=== PATIENT | female | born 1925 | race Caucasian/White ===

== ENCOUNTER 2017-02-15 09:11 | Inpatient (IN) | payer MEDICARE, BC ==
[~2017-02-15] VITALS: Ht 165.1 cm; Wt 71.6 kg
[~2017-02-15 09:11] MED LIST: ATOR20TA38 PO; CEPH-443 PO; CLOP75TA4 PO; VALS320T11 PO
[2017-02-15 09:32] VITALS: TEMP 98.3
[2017-02-15] MEDS ORDERED: FUROSEMIDE 40 MG INJ IV STA (09:39)
[2017-02-15 10:26] LABS: ABNORMAL IP MESSAGE 1; BASOPHIL # 0.1 10^3/ul (0.0-0.1); BASOPHILS % 0.8 % (0.0-2.0); EOSINOPHILS # 0.1 10^3/ul (0.0-0.5); EOSINOPHILS % 0.8 % (0.0-7.0); HEMATOCRIT 42.6 % (37.0-47.0); HEMOGLOBIN 13.9 g/dl (12.0-16.0); LYMPHOCYTES # 1.3 10^3/ul (0.8-2.9); LYMPHOCYTES % 14.1 % (15.0-51.0); MEAN CORPUSCULAR HEMOGLOBIN 30.9 pg (29.0-33.0); MEAN CORPUSCULAR HGB CONC 32.6 g/dl (32.0-37.0); MEAN CORPUSCULAR VOLUME 94.7 fl (82.0-101.0); MEAN PLATELET VOLUME 13.1 fl (7.4-10.4); MONOCYTE # 0.7 10^3/ul (0.3-0.9); MONOCYTES % 7.5 % (0.0-11.0); NEUTROPHILS % 76.4 % (39.0-77.0); PLATELET COUNT 184 10^3/UL (140-415); RED CELL DISTRIBUTION WIDTH 15.1 % (11.5-14.5); WHITE BLOOD COUNT 8.9 10^3/ul (4.8-10.8)
[2017-02-15 10:30] LABS: POSITIVE DIFF @See below
[2017-02-15 10:42] LABS: CALCIUM 8.6 mg/dl (8.4-10.2); CREATININE 1.09 mg/dl (0.44-1.00); POTASSIUM 4.1 mmol/L (3.5-5.1)
[2017-02-15 10:45] LABS: INR 0.87; PROTIME 11.8 Sec (12.2-14.2); PT RATIO 0.9
[2017-02-15 10:46] LABS: PARTIAL THROMBOPLASTIN TIME 26.9 Sec (25.0-35.0)
--- NOTE | 2017-02-15 10:50 | RADRPT ---
PROCEDURE: XR Chest. CLINICAL INDICATION: Chest pain TECHNIQUE: AP view of the chest was performed. COMPARISON: 01/10/2015 FINDINGS: The right lung field is clear. There is a small basilar left pleural effusion with associated airsp imani disease. The lung volumes are normal. The heart size is normal. The osseous structures are in tact. Aortic atherosclerosis is present. IMPRESSION: Small left basilar consolidation with associated small pleural effusion. Aortic atherosclerosis RPTAT: QQ .Liane Goodson MD, Date Time Electronically viewed and signed by .Liane Goodson MD, on 02/15/2017 10:49 .M/
[2017-02-15 11:00] LABS: TROPONIN-I 0.386 ng/ml (0.00-0.12)
[2017-02-15] MEDS ORDERED: NITROGLYCERIN 2% 1 GM OINT PKT TD STA (11:10)
[2017-02-15] MEDS ORDERED: ASPIRIN 81 MG TAB PO STA (11:10)
[2017-02-15] MEDS ORDERED: NITROGLYCERIN (SL) 0.4 MG TAB SL PRN (11:30)
[2017-02-15] MEDS ORDERED: ONDANSETRON 4 MG INJ IV PRN ×2 (12:00→17:00)
[2017-02-15] MEDS ORDERED: ACETAMINOPHEN 325 MG TAB PO PRN ×2 (12:00→17:00)
--- NOTE | 2017-02-15 13:31 | ERA ---
ER Documentation Chief Complaint Date/Time DATE: 02/15/17 TIME: 13:28 Chief Complaint swelling on bilat lower ext, mild sob, onset 2 days HPI Patient is an 89-year-old female with emphysema and hypertension who presents with lower extremity swelling. She has bilateral lower extreme knee swelling which she describes as "dripping water". She said that the right leg is worse than the left but there is swelling in both. The patient said that the symptoms started last week but over the past 2 days the stripping has been worse. She denies chest pain or shortness of breath. Upon review of old medical records the patient one previous visit to the ER in 2014. She does not currently have a primary doctor. ROS All systems reviewed and are negative except as per history of present illness. Medications Home Meds Active Scripts Cephalexin* (Keflex*) 500 Mg Capsule, 500 MG PO BID for 7 Days, CAP Prov:RIC CARL MD 01/10/15 Reported Medications Valsartan* (Diovan*) 320 Mg Tablet, 320 MG PO DAILY, TAB 01/10/15 Atorvastatin Calcium* (Atorvastatin Calcium*) 20 Mg Tablet, 20 MG PO HS, TAB 01/10/15 Clopidogrel Bisulfate* (Clopidogrel Bisulfate*) 75 Mg Tablet, 75 MG PO DAILY, TAB 01/10/15 Allergies Allergies: Coded Allergies: No Known Allergy (Unverified , 01/10/15) PMhx/Soc History of Surgery: No Anesthesia Reaction: No Hx Neurological Disorder: Yes (Forgetful) Hx Respiratory Disorders: No Hx Cardiac Disorders: Yes (HTN) Hx Psychiatric Problems: No Hx Miscellaneous Medical Probl: No Hx Alcohol Use: No Hx Substance Use: No Hx Tobacco Use: No Smoking Status: Never smoker FmHx Family History: No diabetes Physical Exam Vitals Vital Signs Date Time Temp Pulse Resp B/P Pulse Ox O2 Delivery O2 Flow Rate FiO2 02/15/17 11:32 84 20 130/74 95 Room Air 02/15/17 09:32 98.3 84 20 154/78 96 Room Air 02/15/17 09:32 0 02/15/17 09:14 98.9 101 19 140/68 95 Physical Exam Const: No acute distress Head: Atraumatic Eyes: Normal Conjunctiva ENT: Normal External Ears, Nose and Mouth. Neck: Full range of motion..~ No meningismus. Resp: Clear to auscultation bilaterally Cardio: Regular rate and rhythm, no murmurs Abd: Soft, non tender, non distended. Normal bowel sounds Skin: Pitting edema to lower extremities bilaterally Back: No midline or flank tenderness Ext: 2+ pitting edema bilateral lower extremities Neur: Awake and alert Psych: Normal Mood and Affect Result Diagram: 02/15/1730 02/15/17 0930 Results 24 hrs Laboratory Tests Test 02/15/17 09:30 White Blood Count 8.910^3/ul Red Blood Count 4.5010^6/ul Hemoglobin 13.9g/dl Hematocrit 42.6% Mean Corpuscular Volume 94.7fl Mean Corpuscular Hemoglobin 30.9pg Mean Corpuscular Hemoglobin Concent 32.6g/dl Red Cell Distribution Width 15.1% Platelet Count 08913^3/UL Mean Platelet Volume 13.1fl Neutrophils % 76.4% Lymphocytes % 14.1% Monocytes % 7.5% Eosinophils % 0.8% Basophils % 0.8% Nucleated Red Blood Cells % 0.0/100WBC Neutrophils # (Manual) 710^3/ul Lymphocytes # 1.310^3/ul Monocytes # 0.710^3/ul Eosinophils # 0.110^3/ul Basophils # 0.110^3/ul Nucleated Red Blood Cells # 0.010^3/ul Prothrombin Time 11.8Sec Prothrombin Time Ratio 0.9 INR International Normalized Ratio 0.87 Activated Partial Thromboplast Time 26.9Sec Sodium Level 141mmol/L Potassium Level 4.1mmol/L Chloride Level 105mmol/L Carbon Dioxide Level 26mmol/L Anion Gap 14 Blood Urea Nitrogen 24mg/dl Creatinine 1.09mg/dl Glucose Level 122mg/dl Calcium Level 8.6mg/dl Troponin I 0.386ng/ml Current Medications Medications (Trade) Dose Ordered Sig/Nicholas Route PRN Reason Start Time Stop Time Status Last Admin Dose Admin Furosemide (Lasix) 40 mg ONCE STAT IV 02/15/17 09:39 02/15/17 09:42 DC 02/15/17 10:37 Aspirin (Aspirin) 162 mg ONCE STAT PO 02/15/17 11:10 02/15/17 11:11 DC 02/15/17 11:29 Nitroglycerin (Nitroglycerin 2% Oint) 1 inch ONCE STAT TD 02/15/17 11:10 02/15/17 11:11 DC 02/15/17 11:29 Nitroglycerin (Nitroglycerin (Sl Tab) 0.4 Mg) 1 tab Q5M UP TO 3 DOSES PRN SL CHEST PAIN 02/15/17 11:30 Ondansetron HCl (Zofran Inj) 4 mg ER BRIDGE PRN IV NAUSEA AND/OR VOMITING 02/15/17 12:00 02/16/17 11:59 Acetaminophen (Tylenol Tab) 650 mg ER BRIDGE PRN PO MILD PAIN/FEVER 02/15/17 12:00 02/16/17 11:59 Procedures/MDM EKG read by me: Rate/Rhythm: First-degree AV block at a rate of 81 Intervals: Normal Impression: First-degree AV block without ischemia PROCEDURE: XR Chest. CLINICAL INDICATION: Chest pain TECHNIQUE: AP view of the chest was performed. COMPARISON: 01/10/2015 FINDINGS: The right lung field is clear. There is a small basilar left pleural effusion with associated airspace disease. The lung volumes are normal. The heart size is normal. The osseous structures are intact. Aortic atherosclerosis is present. IMPRESSION: Small left basilar consolidation with associated small pleural effusion. Aortic atherosclerosis RPTAT: QQ .Liane Goodson MD, MD Date Time Electronically viewed and signed by .Liane Goodson MD, MD on 02/15/2017 10:49 Patient is an 89-year-old female who presents with bilateral lower semi- swelling. She was found to have a positive troponin I believe the patient has an NSTEMI. EKG shows no sign of ST elevation. She has likely acute congestive heart failure as well from the NSTEMI. The patient was given aspirin nitroglycerin as well as Lasix. The patient will be admitted to a telemetry bed under the care of the panel team. Dr. Tompkins from cardiology will see the patient as well. The patient has discussed with me and said that she does not want heroic life-saving measures taken if her heart stops and therefore we will allison her as a DO NOT RESUSCITATE. She does not want intubation or chest compressions. Critical Care: Time: 35 minutes excluding all billable procedures. Treatments/Evaluations: Close monitoring and treatment of unstable vital signs, cardiorespiratory, and neurologic status, while maintaining tight balance of fluid, respiratory, and cardiac interventions. Departure Diagnosis: Primary Impression: NSTEMI (non-ST elevated myocardial infarction) Condition: Serious CANELO CAMJEO MD Feb 15, 2017 13:31
[2017-02-15 15:10] VITALS: BP 123/67; PULSE 94; RESP 16
[2017-02-15 15:41] VITALS: Ht 165.1 cm; Wt 71.6 kg
--- NOTE | 2017-02-15 15:56 | RADRPT ---
Echocardiogram Report Patient Name: CASI SMITH Gender: Female Date: 1925 Study Date: 15-Feb-2017 Radiology Technologist: Cassy De Jesus RDCS Location: [facility] Ref. Physician: ROGER TOMPKINS Quality: Adequate Procedures: Transthoracic echocardiogram with complete 2D, M-Mode, and doppler examination. Indications: Congestive Heart Failure, elv trop. 2D/M Mode Doppler Measurement Value Normal Ranges Measurement Value Normal Ranges LVIDd 2D 2.6 3.5 - 5.6 cm AV Peak Aquiles 5.0 m/sec LVIDs 2D 1.7 2.1 - 4.1 cm AV Peak PG 99.0 mmHg FS 2D 36.3 % LVOT Peak Aquiles 3.6 m/sec LVPWd 2D 2.1 0.6 - 1.1 cm LVOT Peak PG 52.0 mmHg IVSd 2D 2.1 0.6 - 1.1 cm MV E Peak Aquiles 0.9 m/sec IVS/LVPW 2D 1.0 MV A Peak Aquiles 1.2 m/sec AoR Diam 2D 2.6 2.0 - 3.7 cm MV E/A 0.7 LA/Ao 2D 1 0 - 1 MV Decel Time 194 msec EDV 2D 18.0 cm3 MV E/A 0.7 ESV 2D 4.7 cm3 MR Peak PG 171.0 mmHg LA Dimen 2D 3.8 2.3 - 4.0 cm MR Peak Aquiles 6.5 m/sec TR Peak Aquiles 2.3 m/sec TR Peak PG 22.0 mmHg RVSP 25.0 mmHg Findings Left Ventricle: Normal left ventricular systolic function. Normal left ventricular cavity size. Severe concentric left ventricular hypertrophy. Ejection fraction is visually estimated at 65 %. Tissue Doppler/Mitral Doppler indices are consistent with impaired relaxation (Stage I diastolic dysfunction). Resting left ventricular outflow tract velocity 4.97 m/sec. Resting left ventricular outflow tract gradient 99.0 mmHg. Right Ventricle: Normal right ventricular size. Normal right ventricular systolic function. Left Atrium: The left atrium is normal in size. Right Atrium: The right atrium is normal in size. Mitral Valve: Mitral valve leaflets appear mildly thickened. Mild mitral annular calcification. Mild mitral valve regurgitation. The regurgitation jet is eccentrically directed which may underestimate the severity of mitral regurgitation. Systolic anterior motion of mitral valve seen. Aortic Valve: Normal appearance of the aortic valve. No significant aortic stenosis or insufficiency. Tricuspid Valve: Normal appearance of the tricuspid valve. Estimated peak PA systolic pressure 25 mmHg. There is trace tricuspid regurgitation. Pulmonic Valve: Pulmonic valve not well visualized. Pericardium: Normal pericardium with no significant pericardial effusion. Aorta: Normal aortic root. IVC: Normal size and normal respiratory collapse consistent with normal right atrial pressure. Conclusions Normal left ventricular systolic function. Normal left ventricular cavity size. Severe concentric left ventricular hypertrophy. Ejection fraction is visually estimated at 65 %. Tissue Doppler/Mitral Doppler indices are consistent with impaired relaxation (Stage I diastolic dysfunction). Left ventricular outflow tract gradient. Normal right ventricular size. Normal right ventricular systolic function. The left atrium is normal in size. The right atrium is normal in size. Mild mitral valve regurgitation. The regurgitation jet is eccentrically directed which may underestimate the severity of mitral regurgitation. Systolic anterior motion of mitral valve seen. No significant aortic stenosis or insufficiency. Normal pericardium with no significant pericardial effusion. Electronically Signed By: Roger Tompkins 15-Feb-2017 15:56:27 -0700 Patient Name: CASI SMITH Study Date: 15-Feb-2017 [id number]
--- NOTE | 2017-02-15 16:08 | CONS ---
Date/Time of Note Date/Time of Note DATE: 02/15/17 TIME: 16:01 Assessment/Plan Assessment/Plan Additional Assessment/Plan Acute decompensated diastolic congestive heart failure Severe left ventricular hypertrophy with evidence of hypertrophic obstructive cardiomyopathy Mitral regurgitation Mildly elevated troponin Hypertension DNR/I -Patient initially presented with symptoms of worsening lower extremity edema and weeping. She denies any chest pain but has been having on and off shortness of breath for 6 months. Her chest x-ray with minimal congestion but she does have evidence of significant edema. Given evidence of HOCM on echo, would be gentle with diuretics, would start beta-zhou. Will check serial cardiac enzymes, continue antiplatelet therapy, start statin therapy. Lower extremity venous Dopplers. Consultation Date/Type/Reason Admit Date/Time Feb 15, 2017 at 11:51 Type of Consultation: cv Reason for Consultation Elevated troponin Hx of Present Illness This is an 89-year-old female with past medical history of hypertension, emphysema as per the patient, presents with increased lower extremity edema and discomfort over the past few weeks. Patient states she is always had lower extremity edema but not to this extent. Over the past week, she started weeping from her lower extremities. This worsened today and for that reason she came to the emergency room for further evaluation and care. She has been having intermittent symptoms of shortness of breath off and on over the past 6 months. She tells me she was diagnosed with emphysema by a physician of unknown name approximately 6 months ago he was not a chief lifestyle officer. She denies any chest pain. Her activity is very limited because of her lower extremity edema. She denies any abdominal pain, nausea, fevers or chills. She has not seen a physician in a number of months and usually has not followed up. 12 point review of systems was performed with all pertinent positives and negatives mentioned above and all else is negative Past Medical History Medical History: hypertension Family History Significant Family History: no pertinent family hx Social History Smoking Status: Former smoker Exam/Review of Systems Vital Signs Vitals Vital Signs Date Time Temp Pulse Resp B/P Pulse Ox O2 Delivery O2 Flow Rate FiO2 02/15/17 15:10 97.8 94 16 123/67 97 Room Air 02/15/17 09:32 0 Exam Constitutional: alert, oriented, well developed Neck: supple Respiratory: other (Coarse breath sounds bilaterally, no wheezing) Cardiovascular: other (S1-S2 heard), regular rate and rhythm, systolic murmur Gastrointestinal: bowel sounds, non-tender, soft Extremities: edema Results Result Diagram: 02/15/17 0930 02/15/17 0930 Results 24 hrs Laboratory Tests Test 02/15/17 09:30 White Blood Count 8.9 Red Blood Count 4.50 Hemoglobin 13.9 Hematocrit 42.6 Mean Corpuscular Volume 94.7 Mean Corpuscular Hemoglobin 30.9 Mean Corpuscular Hemoglobin Concent 32.6 Red Cell Distribution Width 15.1 H Platelet Count 184 Mean Platelet Volume 13.1 H Neutrophils % 76.4 Lymphocytes % 14.1 L Monocytes % 7.5 Eosinophils % 0.8 Basophils % 0.8 Nucleated Red Blood Cells % 0.0 Neutrophils # (Manual) 7 Lymphocytes # 1.3 Monocytes # 0.7 Eosinophils # 0.1 Basophils # 0.1 Nucleated Red Blood Cells # 0.0 Prothrombin Time 11.8 L Prothrombin Time Ratio 0.9 INR International Normalized Ratio 0.87 Activated Partial Thromboplast Time 26.9 Sodium Level 141 Potassium Level 4.1 Chloride Level 105 Carbon Dioxide Level 26 Anion Gap 14 Blood Urea Nitrogen 24 H Creatinine 1.09 H Glucose Level 122 Calcium Level 8.6 Troponin I 0.386 *H Medications Medications Current Medications Metoprolol Tartrate (Lopressor) 25 mg BID PO ; Start 02/15/17 at 21:00; Status UNV Aspirin (Aspirin) 81 mg DAILY PO ; Start 02/16/17 at 09:00; Status UNV Atorvastatin Calcium (Lipitor) 40 mg HS PO ; Start 02/15/17 at 21:00; Status UNV Procedures Procedures ECG demonstrates sinus rhythm at 81 bpm, QRS 92 ms, incomplete right bundle branch, nonspecific T-wave abnormalities Roger Tompkins DO Feb 15, 2017 16:08
[2017-02-15 16:38] VITALS: PULSE 91
--- NOTE | 2017-02-15 16:57 | RADRPT ---
PROCEDURE: US Lower extremity venous, bilateral CLINICAL INDICATION: Edema TECHNIQUE: Multiple sonographic images of the bilateral lower extremity deep venous system was ob tained utilizing grayscale, color-flow, compressive sonography and doppler imaging with augmentation . The images were reviewed on a PACS workstation. COMPARISON: None. FINDINGS: There is normal compressibility and flow within the bilateral common femoral, superficial femoral , posterior tibial, peroneal and popliteal veins. Within the subcutaneous soft tissues of the left popliteal fossa, there is a 2.3 x 1.2 x 1.5 cm mild ly complex fluid collection. RPTAT: AA IMPRESSION: No sonographic evidence for deep venous thrombosis in bilateral lower extremities. 2.3 cm Vega's cyst in the left popliteal fossa. Physician Eron Date Time Electronically viewed and signed by Benji Candelario Physician on 02/15/2017 16:57 /
[2017-02-15] MEDS ORDERED: morphine 2 MG INJ IV PRN (17:00)
[2017-02-15] MEDS ORDERED: NACL 0.9% 3 ML SYG IV SCH (17:00)
[2017-02-15] MEDS ORDERED: DOCUSATE SODIUM 100 MG CAP PO PRN (17:00)
[2017-02-15] MEDS ORDERED: HYDROCODONE/APAP (5/325) TAB PO PRN (17:00)
[2017-02-15] MEDS: FUROSEMIDE 20 MG INJ IV SCH (17:30)
[2017-02-15] MEDS ORDERED: MAGNESIUM SULFATE 2 GM/50 ML 50 ML IVPB STA (17:37)
[2017-02-15 18:21] LABS: CK-MB 12.7 ng/ml (0.0-2.4)
[2017-02-15 18:22] LABS: TROPONIN-I 0.475 ng/ml (0.00-0.12)
[2017-02-15] MEDS ORDERED: MAGNESIUM SULFATE 2 GM/50 ML 50 ML IVPB ONE (18:30)
[2017-02-15 20:13] VITALS: BP 89/53; RESP 18
[2017-02-15 20:15] VITALS: PULSE 89
[2017-02-15] MEDS: ATORVASTATIN 40 MG TAB PO SCH (20:55)
[2017-02-15] MEDS: METOPROLOL 25 MG TAB PO SCH (20:55)
[2017-02-15 20:57] VITALS: BP 115/56; PULSE 95; RESP 18
[2017-02-15 23:32] LABS: CK-MB 12.2 ng/ml (0.0-2.4); TROPONIN-I 0.511 ng/ml (0.00-0.12)
[2017-02-16] VITALS (14 sets, daily range): BP systolic 108–130; BP diastolic 56–70; PULSE 74–103; RESP 20
[2017-02-16] MEDS: FUROSEMIDE 20 MG INJ IV SCH ×2 (05:46→17:43)
--- NOTE | 2017-02-16 07:21 | PN ---
Date/Time of Note Date/Time of Note DATE: 02/16/17 TIME: 07:18 Assessment/Plan VTE Prophylaxis VTE Prophylaxis Intervention: SCD's Lines/Catheters IV [facility] Saline Lock Urinary Cath still in place: No Assessment/Plan Assessment/Plan Acute decompensated diastolic congestive heart failure s/p Torsades Severe left ventricular hypertrophy with evidence of hypertrophic obstructive cardiomyopathy Mitral regurgitation Mildly elevated troponin Hypertension s/p Torsades 02/16 for 5 minutes DNR/I -Patient initially presented with symptoms of worsening lower extremity edema and weeping. She denies any chest pain but has been having on and off shortness of breath for 6 months. Her chest x-ray with minimal congestion but she does have evidence of significant edema. Given evidence of HOCM on echo, would be gentle with diuretics, would continuebeta-zhou. Will check serial cardiac enzymes, continue antiplatelet therapy, start statin therapy. She is s/ p torsades and no recurrecne post magnesium. She is a DNR patient and possible EP input Subjective 24 Hr Interval Summary Free Text/Dictation The patient s/p torsades and no recurrence since Exam/Review of Systems Vital Signs Vitals Vital Signs Date Time Temp Pulse Resp B/P Pulse Ox O2 Delivery O2 Flow Rate FiO2 02/16/17 05:25 97.9 87 20 108/56 90 02/15/17 20:57 Room Air 02/15/17 09:32 0 Intake and Output 02/15/17 02/15/17 02/16/17 15:00 23:00 07:00 Intake Total 625 ml 300 ml Output Total 1 ml Balance 624 ml 300 ml Results Result Diagram: 02/15/1730 02/15/17 0930 Results 24 hrs Laboratory Tests Test 02/15/17 09:30 02/15/17 17:25 02/15/17 17:37 02/15/17 22:24 White Blood Count 8.9 Red Blood Count 4.50 Hemoglobin 13.9 Hematocrit 42.6 Mean Corpuscular Volume 94.7 Mean Corpuscular Hemoglobin 30.9 Mean Corpuscular Hemoglobin Concent 32.6 Red Cell Distribution Width 15.1 H Platelet Count 184 Mean Platelet Volume 13.1 H Neutrophils % 76.4 Lymphocytes % 14.1 L Monocytes % 7.5 Eosinophils % 0.8 Basophils % 0.8 Nucleated Red Blood Cells % 0.0 Neutrophils # (Manual) 7 Lymphocytes # 1.3 Monocytes # 0.7 Eosinophils # 0.1 Basophils # 0.1 Nucleated Red Blood Cells # 0.0 Prothrombin Time 11.8 L Prothrombin Time Ratio 0.9 INR International Normalized Ratio 0.87 Activated Partial Thromboplast Time 26.9 Sodium Level 141 Potassium Level 4.1 Chloride Level 105 Carbon Dioxide Level 26 Anion Gap 14 Blood Urea Nitrogen 24 H Creatinine 1.09 H Glucose Level 122 Calcium Level 8.6 Troponin I 0.386 *H 0.475 *H 0.511 *H Creatine Kinase 195 192 Creatine Kinase Index 6.5 6.4 Creatinine Kinase MB (Mass) 12.70 H 12.20 H Magnesium Level 1.8 Medications Medications Current Medications Metoprolol Tartrate (Lopressor) 25 mg BID PO Last administered on 02/15/17 20: 55; Admin Dose 25 MG; Start 02/15/17 at 21:00 Aspirin (Aspirin) 81 mg DAILY PO ; Start 02/16/17 at 09:00 Atorvastatin Calcium (Lipitor) 40 mg HS PO Last administered on 02/15/17 20:55 ; Admin Dose 40 MG; Start 02/15/17 at 21:00 Clopidogrel Bisulfate (plaVIX) 75 mg DAILY PO ; Start 02/16/17 at 09:00 Ondansetron HCl (Zofran Inj) 4 mg Q6H PRN IV NAUSEA AND/OR VOMITING; Start at 17:00 Acetaminophen (Tylenol Tab) 650 mg Q6H PRN PO PAIN LEVEL 1-3 OR FEVER; Start at 17:00 Acetaminophen/ Hydrocodone Bitart ([place] (5/325)) 1 tab Q6H PRN PO MODERATE PAIN LEVEL 4-6; Start 02/15/17 at 17:00 Morphine Sulfate (morphine) 2 mg Q4H PRN IV SEVERE PAIN LEVEL 7-10; Start 02/15 at 17:00 Docusate Sodium (Colace) 100 mg Q12H PRN PO CONSTIPATION; Start 02/15/17 at 17: 00 Enoxaparin Sodium (Lovenox) 40 mg DAILY SC ; Start 02/16/17 at 09:00 TRACY ROUSE MD Feb 16, 2017 07:21
[2017-02-16 08:55] LABS: ABNORMAL IP MESSAGE 1; BASOPHIL # 0.1 10^3/ul (0.0-0.1); BASOPHILS % 0.5 % (0.0-2.0); EOSINOPHILS # 0.1 10^3/ul (0.0-0.5); EOSINOPHILS % 0.8 % (0.0-7.0); HEMATOCRIT 42.3 % (37.0-47.0); HEMOGLOBIN 14.1 g/dl (12.0-16.0); LYMPHOCYTES # 1.5 10^3/ul (0.8-2.9); LYMPHOCYTES % 16.6 % (15.0-51.0); MEAN CORPUSCULAR HEMOGLOBIN 31.7 pg (29.0-33.0); MEAN CORPUSCULAR HGB CONC 33.3 g/dl (32.0-37.0); MEAN CORPUSCULAR VOLUME 95.1 fl (82.0-101.0); MEAN PLATELET VOLUME 13.1 fl (7.4-10.4); MONOCYTE # 0.7 10^3/ul (0.3-0.9); MONOCYTES % 7.9 % (0.0-11.0); RED BLOOD COUNT 4.45 10^6/ul (4.20-5.40); RED CELL DISTRIBUTION WIDTH 14.9 % (11.5-14.5); WHITE BLOOD COUNT 9.2 10^3/ul (4.8-10.8)
[2017-02-16] MEDS ORDERED: ENOXAPARIN 40 MG/0.4 ML SYG SC SCH (09:00)
[2017-02-16] MEDS: METOPROLOL 25 MG TAB PO SCH ×2 (09:05→21:51)
[2017-02-16] MEDS: CLOPIDOGREL 75 MG TAB PO SCH (09:05)
[2017-02-16] MEDS: ASPIRIN 81 MG TAB PO SCH (09:05)
[2017-02-16 09:14] LABS: PLATELET COUNT 198 10^3/UL (140-415); POSITIVE DIFF @See below
[2017-02-16 09:16] LABS: CALCIUM 8.6 mg/dl (8.4-10.2); CHOL/HDL RATIO 4.8 RATIO; CREATININE 1.35 mg/dl (0.44-1.00); PHOSPHORUS 4.5 mg/dl (2.5-4.9); POTASSIUM 4.1 mmol/L (3.5-5.1)
--- NOTE | 2017-02-16 13:23 | HP ---
Date/Time of Note Date/Time of Note DATE: 02/15/17 TIME: 13:17 Assessment/Plan VTE Prophylaxis VTE Prophylaxis Intervention: LMWH Lines/Catheters IV Catheter Type (from [facility]): Saline Lock Urinary Cath still in place: No Assessment/Plan Chief Complaint/Hosp Course 1. Non-STEMI -Cardiology evaluation -Troponins and follow-up on echo 2. V. tach-nonsustained -Follow-up echo, cardiology following 3. History of hypertension -Hold home meds 4. Lower extremity edema-there is CHF versus lymphedema -Follow-up 2D echo 5. Acute kidney injury -Monitor Prophylaxis: Lovenox Problems: HPI/ROS Admit Date/Time Admit Date/Time Feb 15, 2017 at 11:51 Hx of Present Illness Patient is an 89-year-old female with a history of hypertension and dyslipidemia as well as chronic lower extremity swelling for the past several months. Patient presents with complaint of worsening lower extremity edema and was found to have elevated troponins. Patient is poor historian and during my evaluation patient went into V. tach. Patient is being admitted for further cardiac workup, she has no other complaints except for lower extremity edema. ROS Patient is a poor historian and review of systems difficult to obtain but she has no complaints except for lower extremity edema PMH/Family/Social Past Medical History Medical History: hypertension Past Surgical History Past Surgical Hx: no surgical history Family History Significant Family History: no pertinent family hx Social History Alcohol Use: rarely Smoking Status: Former smoker Drug Use: none Exam/Review of Systems Vital Signs Vitals Vital Signs Date Time Temp Pulse Resp B/P Pulse Ox O2 Delivery O2 Flow Rate FiO2 02/16/17 11:28 97.8 69 20 114/58 94 02/15/17 20:57 Room Air 02/15/17 09:32 0 Intake and Output 02/15/17 02/15/17 02/16/17 15:00 23:00 07:00 Intake Total 625 ml 300 ml Output Total 1 ml Balance 624 ml 300 ml Exam Constitutional: alert Psych: confusion Head: normocephalic Respiratory: clear to auscultation Cardiovascular: regular rate and rhythm Gastrointestinal: soft, No distended Musculoskeletal: No nl extremities to inspection Extremities: edema Labs Result Diagram: 02/16/17 0756 02/16/17 0756 Medications Medications Current Medications Metoprolol Tartrate (Lopressor) 25 mg BID PO Last administered on 02/16/17 09: 05; Admin Dose 25 MG; Start 02/15/17 at 21:00 Aspirin (Aspirin) 81 mg DAILY PO Last administered on 02/16/17 09:05; Admin Dose 81 MG; Start 02/16/17 at 09:00 Atorvastatin Calcium (Lipitor) 40 mg HS PO Last administered on 02/15/17 20:55 ; Admin Dose 40 MG; Start 02/15/17 at 21:00 Clopidogrel Bisulfate (plaVIX) 75 mg DAILY PO Last administered on 02/16/17 09 :05; Admin Dose 75 MG; Start 02/16/17 at 09:00 Ondansetron HCl (Zofran Inj) 4 mg Q6H PRN IV NAUSEA AND/OR VOMITING; Start at 17:00 Acetaminophen (Tylenol Tab) 650 mg Q6H PRN PO PAIN LEVEL 1-3 OR FEVER; Start at 17:00 Acetaminophen/ Hydrocodone Bitart ([place] (5/325)) 1 tab Q6H PRN PO MODERATE PAIN LEVEL 4-6; Start 02/15/17 at 17:00 Morphine Sulfate (morphine) 2 mg Q4H PRN IV SEVERE PAIN LEVEL 7-10; Start 02/15 at 17:00 Docusate Sodium (Colace) 100 mg Q12H PRN PO CONSTIPATION; Start 02/15/17 at 17: 00 Enoxaparin Sodium (Lovenox) 30 mg DAILY SC ; Start 02/17/17 at 09:00 RENITA BURNS Feb 16, 2017 13:22
--- NOTE | 2017-02-16 13:30 | PN ---
Date/Time of Note Date/Time of Note DATE: 02/16/17 TIME: 13:24 Assessment/Plan VTE Prophylaxis VTE Prophylaxis Intervention: LMWH Lines/Catheters IV C[facility]ter Type (from [facility] Saline Lock Urinary Cath still in place: No Assessment/Plan Chief Complaint/Hosp Course 1. Non-STEMI likely secondary to demand ischemia -Cardiology consult appreciated -2D echo shows HOCM 2. s/p Torsades -Patient will likely need a defibrillator is agreeable to having a placed -Cardiology following 3. HOCM with decompensation -Patient has some pulmonary edema with lower extremity edema -Gentle diuresis 4. Acute kidney injury-creatinine increased today -Monitor -Nephrology consultation 5. History of hypertension -Hold home meds CODE STATUS: After discussion with patient and partner it was decided to make patient full code at this time Prophylaxis: Lovenox Problems: Subjective 24 Hr Interval Summary Constitutional: disoriented Exam/Review of Systems Vital Signs Vitals Vital Signs Date Time Temp Pulse Resp B/P Pulse Ox O2 Delivery O2 Flow Rate FiO2 02/16/17 11:28 97.8 69 20 114/58 94 02/15/17 20:57 Room Air 02/15/17 09:32 0 Intake and Output 02/15/17 02/15/17 02/16/17 15:00 23:00 07:00 Intake Total 625 ml 300 ml Output Total 1 ml Balance 624 ml 300 ml Exam Constitutional: alert Psych: confusion Respiratory: clear to auscultation Cardiovascular: regular rate and rhythm Gastrointestinal: soft, No distended Musculoskeletal: nl extremities to inspection Results Result Diagram: 02/16/17 0756 02/16/17 0756 Results 24 hrs Laboratory Tests Test 02/15/17 17:25 02/15/17 17:37 02/15/17 22:24 02/16/17 07:56 Creatine Kinase 195 192 Creatine Kinase Index 6.5 6.4 Creatinine Kinase MB (Mass) 12.70 H 12.20 H Troponin I 0.475 *H 0.511 *H Magnesium Level 1.8 2.4 White Blood Count 9.2 Red Blood Count 4.45 Hemoglobin 14.1 Hematocrit 42.3 Mean Corpuscular Volume 95.1 Mean Corpuscular Hemoglobin 31.7 Mean Corpuscular Hemoglobin Concent 33.3 Red Cell Distribution Width 14.9 H Platelet Count 198 Mean Platelet Volume 13.1 H Neutrophils % 74.0 Lymphocytes % 16.6 Monocytes % 7.9 Eosinophils % 0.8 Basophils % 0.5 Nucleated Red Blood Cells % 0.0 Neutrophils # (Manual) 7 Lymphocytes # 1.5 Monocytes # 0.7 Eosinophils # 0.1 Basophils # 0.1 Nucleated Red Blood Cells # 0.0 Sodium Level 137 Potassium Level 4.1 Chloride Level 102 Carbon Dioxide Level 27 Anion Gap 12 Blood Urea Nitrogen 29 H Creatinine 1.35 H Glucose Level 117 Hemoglobin A1c 5.8 Calcium Level 8.6 Phosphorus Level 4.5 Triglycerides Level 183 H Cholesterol Level 240 H LDL Cholesterol, Calculated 153 HDL Cholesterol 50 Cholesterol/HDL Ratio 4.8 Medications Medications Current Medications Metoprolol Tartrate (Lopressor) 25 mg BID PO Last administered on 02/16/17 09: 05; Admin Dose 25 MG; Start 02/15/17 at 21:00 Aspirin (Aspirin) 81 mg DAILY PO Last administered on 02/16/17 09:05; Admin Dose 81 MG; Start 02/16/17 at 09:00 Atorvastatin Calcium (Lipitor) 40 mg HS PO Last administered on 02/15/17 20:55 ; Admin Dose 40 MG; Start 02/15/17 at 21:00 Clopidogrel Bisulfate (plaVIX) 75 mg DAILY PO Last administered on 02/16/17 09 :05; Admin Dose 75 MG; Start 02/16/17 at 09:00 Ondansetron HCl (Zofran Inj) 4 mg Q6H PRN IV NAUSEA AND/OR VOMITING; Start at 17:00 Acetaminophen (Tylenol Tab) 650 mg Q6H PRN PO PAIN LEVEL 1-3 OR FEVER; Start at 17:00 Acetaminophen/ Hydrocodone Bitart ([place] (5/325)) 1 tab Q6H PRN PO MODERATE PAIN LEVEL 4-6; Start 02/15/17 at 17:00 Morphine Sulfate (morphine) 2 mg Q4H PRN IV SEVERE PAIN LEVEL 7-10; Start 02/15 at 17:00 Docusate Sodium (Colace) 100 mg Q12H PRN PO CONSTIPATION; Start 02/15/17 at 17: 00 Enoxaparin Sodium (Lovenox) 30 mg DAILY SC ; Start 02/17/17 at 09:00 RENITA BURNS Feb 16, 2017 13:30
[2017-02-16] MEDS: HALOPERIDOL 5 MG INJ IM PRN (18:58)
--- NOTE | 2017-02-16 19:15 | CONS ---
Date/Time of Note Date/Time of Note DATE: 02/16/17 TIME: 19:08 Assessment/Plan Assessment/Plan Additional Assessment/Plan 1. Acute kidney injury due to hemodynamics from CHF and NSTEMI 2. NSTEMI 3. CHF 4. HTN 5. Rule out CKD Plan: no IVF overnight today will follow up on CXR and BNP In AM Urine stuides has been ordered URic acid, CK total Renal US Cardiology following for NSTEMi will wait for better imrpovement of Cr prior to ACEI/ARB Monitor electrolytes and replace as needed willf ollow up Thanks for consultation Consultation Date/Type/Reason Admit Date/Time Feb 15, 2017 at 11:51 Date of Consultation: Feb 16, 2017 Type of Consultation: NEPHROLOGY Reason for Consultation Acute kidney injury vs ACute kidney injury on CKD Referring Provider: RENITA BURNS Hx of Present Illness 89-year-old female with a history of hypertension and dyslipidemia as well as chronic lower extremity swelling for the past several months. Patient presents with complaint of worsening lower extremity edema and was found to have elevated troponins. Patient is poor historian and during my evaluation patient went into V. tach. Patient is being admitted for further cardiac workup, she has no other complaints except for lower extremity edema. pt is noted to have elevated Cr wtih V tach, renal has been consulted for it. Constitutional: disoriented Respiratory: pain, pleuritic pain Cardiovascular: lightheadedness, paroxysmal nocturnal dyspnea Psychological: confusion Past Medical History Medical History: hypertension Past Surgical History Past Surgical Hx: no surgical history Social History Alcohol Use: rarely Smoking Status: Former smoker Drug Use: none Exam/Review of Systems Vital Signs Vitals Vital Signs Date Time Temp Pulse Resp B/P Pulse Ox O2 Delivery O2 Flow Rate FiO2 02/16/17 16:03 75 02/16/17 15:32 97.5 20 130/66 92 02/15/17 20:57 Room Air 02/15/17 09:32 0 Intake and Output 02/15/17 02/15/17 02/16/17 15:00 23:00 07:00 Intake Total 625 ml 300 ml Output Total 1 ml Balance 624 ml 300 ml Exam Constitutional: alert Psych: confusion Head: normocephalic Respiratory: decreased BS at bases, bibasilar rales Cardiovascular: regular rate and rhythm Gastrointestinal: soft, No distended Musculoskeletal: No nl extremities to inspection Extremities: edema Results Result Diagram: 02/16/17 0756 02/16/17 0756 Results 24 hrs Laboratory Tests Test 02/15/17 22:24 02/16/17 07:56 Creatine Kinase 192 Creatine Kinase Index 6.4 Creatinine Kinase MB (Mass) 12.20 H Troponin I 0.511 *H White Blood Count 9.2 Red Blood Count 4.45 Hemoglobin 14.1 Hematocrit 42.3 Mean Corpuscular Volume 95.1 Mean Corpuscular Hemoglobin 31.7 Mean Corpuscular Hemoglobin Concent 33.3 Red Cell Distribution Width 14.9 H Platelet Count 198 Mean Platelet Volume 13.1 H Neutrophils % 74.0 Lymphocytes % 16.6 Monocytes % 7.9 Eosinophils % 0.8 Basophils % 0.5 Nucleated Red Blood Cells % 0.0 Neutrophils # (Manual) 7 Lymphocytes # 1.5 Monocytes # 0.7 Eosinophils # 0.1 Basophils # 0.1 Nucleated Red Blood Cells # 0.0 Sodium Level 137 Potassium Level 4.1 Chloride Level 102 Carbon Dioxide Level 27 Anion Gap 12 Blood Urea Nitrogen 29 H Creatinine 1.35 H Glucose Level 117 Hemoglobin A1c 5.8 Calcium Level 8.6 Phosphorus Level 4.5 Magnesium Level 2.4 Triglycerides Level 183 H Cholesterol Level 240 H LDL Cholesterol, Calculated 153 HDL Cholesterol 50 Cholesterol/HDL Ratio 4.8 Medications Medications Current Medications Metoprolol Tartrate (Lopressor) 25 mg BID PO Last administered on 02/16/17 09: 05; Admin Dose 25 MG; Start 02/15/17 at 21:00 Aspirin (Aspirin) 81 mg DAILY PO Last administered on 02/16/17 09:05; Admin Dose 81 MG; Start 02/16/17 at 09:00 Atorvastatin Calcium (Lipitor) 40 mg HS PO Last administered on 02/15/17 20:55 ; Admin Dose 40 MG; Start 02/15/17 at 21:00 Clopidogrel Bisulfate (plaVIX) 75 mg DAILY PO Last administered on 02/16/17 09 :05; Admin Dose 75 MG; Start 02/16/17 at 09:00 Ondansetron HCl (Zofran Inj) 4 mg Q6H PRN IV NAUSEA AND/OR VOMITING; Start at 17:00 Acetaminophen (Tylenol Tab) 650 mg Q6H PRN PO PAIN LEVEL 1-3 OR FEVER; Start at 17:00 Acetaminophen/ Hydrocodone Bitart ([place] (5/325)) 1 tab Q6H PRN PO MODERATE PAIN LEVEL 4-6; Start 02/15/17 at 17:00 Morphine Sulfate (morphine) 2 mg Q4H PRN IV SEVERE PAIN LEVEL 7-10; Start 02/15 at 17:00 Docusate Sodium (Colace) 100 mg Q12H PRN PO CONSTIPATION; Start 02/15/17 at 17: 00 Enoxaparin Sodium (Lovenox) 30 mg DAILY SC ; Start 02/17/17 at 09:00 Haloperidol (Haldol) 2 mg Q8H PRN IM AGITATION Last administered on 02/16/17t 18:58; Admin Dose 2 MG; Start 02/16/17 at 19:00 TOMMY CAMACHO MD Feb 16, 2017 19:15
[2017-02-16] MEDS ORDERED: LORAZEPAM 2 MG INJ IV ONE (19:30)
[2017-02-16] MEDS: ATORVASTATIN 40 MG TAB PO SCH (21:51)
[2017-02-17] VITALS (12 sets, daily range): BP systolic 81–132; BP diastolic 46–64; PULSE 65–86; RESP 17–20
[2017-02-17] MEDS: FUROSEMIDE 20 MG INJ IV SCH ×2 (06:23→18:00)
[2017-02-17 07:52] LABS: ABNORMAL IP MESSAGE 1; BASOPHIL # 0.1 10^3/ul (0.0-0.1); BASOPHILS % 0.7 % (0.0-2.0); EOSINOPHILS # 0.2 10^3/ul (0.0-0.5); EOSINOPHILS % 1.9 % (0.0-7.0); HEMATOCRIT 40.4 % (37.0-47.0); HEMOGLOBIN 13.3 g/dl (12.0-16.0); LYMPHOCYTES # 1.6 10^3/ul (0.8-2.9); LYMPHOCYTES % 16.6 % (15.0-51.0); MEAN CORPUSCULAR HEMOGLOBIN 30.9 pg (29.0-33.0); MEAN CORPUSCULAR HGB CONC 32.9 g/dl (32.0-37.0); MEAN PLATELET VOLUME 12.9 fl (7.4-10.4); MONOCYTE # 0.9 10^3/ul (0.3-0.9); MONOCYTES % 9.3 % (0.0-11.0); NEUTROPHILS % 71.2 % (39.0-77.0); PLATELET COUNT 175 10^3/UL (140-415); RED CELL DISTRIBUTION WIDTH 14.9 % (11.5-14.5); WHITE BLOOD COUNT 9.8 10^3/ul (4.8-10.8)
[2017-02-17 08:01] LABS: POSITIVE DIFF @See below
[2017-02-17 08:15] LABS: CALCIUM 8.4 mg/dl (8.4-10.2); CREATININE 1.22 mg/dl (0.44-1.00); MAGNESIUM 2.2 mg/dl (1.7-2.5); POTASSIUM 3.8 mmol/L (3.5-5.1); URIC ACID 9.2 mg/dl (3.1-7.9)
--- NOTE | 2017-02-17 10:28 | CONS ---
Date/Time of Note Date/Time of Note DATE: 02/17/17 TIME: 10:16 Consultation Date/Type/Reason Admit Date/Time Feb 15, 2017 at 11:51 Initial Consult Date 02/16/17 Type of Consultation: NEPHROLOGY Referring Provider: RENITA BURNS 24 HR Interval Summary Free Text/Dictation Acute decompensated diastolic congestive heart failure s/p Torsades Severe left ventricular hypertrophy with evidence of hypertrophic obstructive cardiomyopathy Mitral regurgitation Mildly elevated troponin Hypertension s/p Torsades 02/16 for 5 minutes DNR/I encourage ambulation Constitutional: improved Exam/Review of Systems Vital Signs Vitals Vital Signs Date Time Temp Pulse Resp B/P Pulse Ox O2 Delivery O2 Flow Rate FiO2 02/17/17 08:30 79 02/17/17 07:59 98.0 20 128/64 92 02/17/17 04:55 Room Air 02/15/17 09:32 0 Intake and Output 02/16/17 02/16/17 02/17/17 14:59 22:59 06:59 Intake Total 720 ml 200 ml Balance 720 ml 200 ml Exam Constitutional: alert, oriented Psych: no complaints Head: normocephalic Respiratory: clear to auscultation, diminished breath sounds Cardiovascular: regular rate and rhythm Gastrointestinal: non-tender, soft Musculoskeletal: nl extremities to inspection Results Result Diagram: 02/17/17 0657 02/17/17 0657 Results 24 hrs Laboratory Tests Test 02/17/17 06:57 White Blood Count 9.8 Red Blood Count 4.30 Hemoglobin 13.3 Hematocrit 40.4 Mean Corpuscular Volume 94.0 Mean Corpuscular Hemoglobin 30.9 Mean Corpuscular Hemoglobin Concent 32.9 Red Cell Distribution Width 14.9 H Platelet Count 175 Mean Platelet Volume 12.9 H Neutrophils % 71.2 Lymphocytes % 16.6 Monocytes % 9.3 Eosinophils % 1.9 Basophils % 0.7 Nucleated Red Blood Cells % 0.0 Neutrophils # (Manual) 7 Lymphocytes # 1.6 Monocytes # 0.9 Eosinophils # 0.2 Basophils # 0.1 Nucleated Red Blood Cells # 0.0 Sodium Level 139 Potassium Level 3.8 Chloride Level 102 Carbon Dioxide Level 28 Anion Gap 13 Blood Urea Nitrogen 33 H Creatinine 1.22 H Glucose Level 100 Uric Acid 9.2 H Calcium Level 8.4 Magnesium Level 2.2 Creatine Kinase 434 #H B-Type Natriuretic Peptide 35850 H Medications Medications Current Medications Metoprolol Tartrate (Lopressor) 25 mg BID PO Last administered on 02/16/17 21: 51; Admin Dose 25 MG; Start 02/15/17 at 21:00 Aspirin (Aspirin) 81 mg DAILY PO Last administered on 02/16/17 09:05; Admin Dose 81 MG; Start 02/16/17 at 09:00 Atorvastatin Calcium (Lipitor) 40 mg HS PO Last administered on 02/16/17 21:51 ; Admin Dose 40 MG; Start 02/15/17 at 21:00 Clopidogrel Bisulfate (plaVIX) 75 mg DAILY PO Last administered on 02/16/17 09 :05; Admin Dose 75 MG; Start 02/16/17 at 09:00 Ondansetron HCl (Zofran Inj) 4 mg Q6H PRN IV NAUSEA AND/OR VOMITING; Start at 17:00 Acetaminophen (Tylenol Tab) 650 mg Q6H PRN PO PAIN LEVEL 1-3 OR FEVER; Start at 17:00 Acetaminophen/ Hydrocodone Bitart ([place] (5/325)) 1 tab Q6H PRN PO MODERATE PAIN LEVEL 4-6; Start 02/15/17 at 17:00 Morphine Sulfate (morphine) 2 mg Q4H PRN IV SEVERE PAIN LEVEL 7-10; Start 02/15 at 17:00 Docusate Sodium (Colace) 100 mg Q12H PRN PO CONSTIPATION; Start 02/15/17 at 17: 00 Enoxaparin Sodium (Lovenox) 30 mg DAILY SC ; Start 02/17/17 at 09:00 Haloperidol (Haldol) 2 mg Q8H PRN IM AGITATION Last administered on 02/16/17 18:58; Admin Dose 2 MG; Start 02/16/17 at 19:00 EVA HOWARD MD Feb 17, 2017 10:26
[2017-02-17] MEDS: ASPIRIN 81 MG TAB PO SCH (10:50)
[2017-02-17] MEDS: CLOPIDOGREL 75 MG TAB PO SCH (10:50)
[2017-02-17] MEDS: METOPROLOL 25 MG TAB PO SCH ×2 (10:51→21:00)
[2017-02-17] MEDS: ENOXAPARIN 30 MG/0.3 ML SYG SC SCH (10:52)
--- NOTE | 2017-02-17 17:04 | RADRPT ---
PROCEDURE: Chest radiograph CLINICAL INDICATION: SOB, CHF. COMPARISON: Radiograph 02/15/2017. TECHNIQUE: Single portable frontal view. FINDINGS: Small left pleural effusion with adjacent atelectasis. An oval opacity along the right minor fissure may represent focal thickening or small amount fluid. The heart is not enlarged. Atherosclerosis. No suspicious bone lesion. IMPRESSION: Overall, no change in aeration of the lungs since 02/15/2017. 1. Small left pleural effusion. 2. Chronic scar or small amount of effusion along the right minor fissure. RPTAT: PP Physician Ted Date Time Electronically viewed and signed by Physician Ted on 02/17/2017 17:04 LG/
--- NOTE | 2017-02-17 17:08 | RADRPT ---
PROCEDURE: Retroperitoneal ultrasound. CLINICAL INDICATION: Chronic renal insufficiency TECHNIQUE: Espinal scale and color doppler ultrasound images of the retroperitoneum, kidneys, urinary bladder COMPARISON: No prior studies are available for comparison. FINDINGS: Kidneys: Right length (cm) : 12.2 Left length (cm) : 10.5 Right cortical thickness: Normal. Left cortical thickness: Normal. Echogenicity: Normal bilaterally. Hydronephrosis: None. Renal calculi: None. Focal lesions: A few benign-appearing cysts are present bilaterally measuring up to 5.6 cm on the ri ght. Abdominal aorta: Not visualized by the executive business coach. Bladder: No focal lesions. Other findings: Mild ascites is present. Partially visualized bilateral pleural effusions. IMPRESSION: A few benign appearing bilateral renal cysts are present without evidence of hydronephrosis or other parenchymal abnormalities. RPTAT: AADD .Gaurav Pedro MD, MD Date Time Electronically viewed and signed by .Gaurav Pedro MD, on 02/17/2017 17:07 .B/
--- NOTE | 2017-02-17 19:05 | PN ---
Date/Time of Note Date/Time of Note DATE: 02/17/17 TIME: 19:02 Assessment/Plan VTE Prophylaxis VTE Prophylaxis Intervention: LMWH Lines/Catheters IV [facility] Saline Lock Urinary Cath still in place: No Assessment/Plan Chief Complaint/Hosp Course 1. Non-STEMI likely secondary to demand ischemia -Cardiology consult appreciated -2D echo shows HOCM 2. s/p Torsades -Patient will likely need a defibrillator is agreeable to having a placed -Cardiology following 3. HOCM with decompensation -Patient has some pulmonary edema with lower extremity edema -Gentle diuresis 4. Acute kidney injury secondary to hemodynamics from CHF -Monitor -Nephrology consultation appreciated 5. History of hypertension -Hold home meds 6. Lower extremity swelling secondary to HOCM and/or lymphedema -Vascular surgery consult with Dr. Padilla obtained CODE STATUS: After discussion with patient and partner it was decided to make patient full code at this time Prophylaxis: Lovenox Problems: Subjective 24 Hr Interval Summary Constitutional: no complaints Exam/Review of Systems Vital Signs Vitals Vital Signs Date Time Temp Pulse Resp B/P Pulse Ox O2 Delivery O2 Flow Rate FiO2 02/17/17 16:30 70 02/17/17 15:32 97.9 18 92/54 93 02/17/17 04:55 Room Air 02/15/17 09:32 0 Intake and Output 02/16/17 02/16/17 02/17/17 15:00 23:00 07:00 Intake Total 720 ml 200 ml Balance 720 ml 200 ml Exam Constitutional: alert Respiratory: clear to auscultation Cardiovascular: regular rate and rhythm Gastrointestinal: soft, No distended Extremities: edema Results Result Diagram: 02/17/17 0657 02/17/17 0657 Results 24 hrs Laboratory Tests Test 02/17/17 06:57 02/17/17 11:15 White Blood Count 9.8 Red Blood Count 4.30 Hemoglobin 13.3 Hematocrit 40.4 Mean Corpuscular Volume 94.0 Mean Corpuscular Hemoglobin 30.9 Mean Corpuscular Hemoglobin Concent 32.9 Red Cell Distribution Width 14.9 H Platelet Count 175 Mean Platelet Volume 12.9 H Neutrophils % 71.2 Lymphocytes % 16.6 Monocytes % 9.3 Eosinophils % 1.9 Basophils % 0.7 Nucleated Red Blood Cells % 0.0 Neutrophils # (Manual) 7 Lymphocytes # 1.6 Monocytes # 0.9 Eosinophils # 0.2 Basophils # 0.1 Nucleated Red Blood Cells # 0.0 Sodium Level 139 Potassium Level 3.8 Chloride Level 102 Carbon Dioxide Level 28 Anion Gap 13 Blood Urea Nitrogen 33 H Creatinine 1.22 H Glucose Level 100 Uric Acid 9.2 H Calcium Level 8.4 Magnesium Level 2.2 Creatine Kinase 434 #H B-Type Natriuretic Peptide 35511 H Urine Eosinophils % 0.0 Urine Random Creatinine Urine Random Sodium 82 Urine Protein/Creatinine Ratio Urine Total Protein Medications Medications Current Medications Metoprolol Tartrate (Lopressor) 25 mg BID PO Last administered on 02/17/17 10: 51; Admin Dose 25 MG; Start 02/15/17 at 21:00 Aspirin (Aspirin) 81 mg DAILY PO Last administered on 02/17/17 10:50; Admin Dose 81 MG; Start 02/16/17 at 09:00 Atorvastatin Calcium (Lipitor) 40 mg HS PO Last administered on 02/16/17 21:51 ; Admin Dose 40 MG; Start 02/15/17 at 21:00 Clopidogrel Bisulfate (plaVIX) 75 mg DAILY PO Last administered on 02/17/17 10 :50; Admin Dose 75 MG; Start 02/16/17 at 09:00 Ondansetron HCl (Zofran Inj) 4 mg Q6H PRN IV NAUSEA AND/OR VOMITING; Start at 17:00 Acetaminophen (Tylenol Tab) 650 mg Q6H PRN PO PAIN LEVEL 1-3 OR FEVER; Start at 17:00 Acetaminophen/ Hydrocodone Bitart ([place] (5/325)) 1 tab Q6H PRN PO MODERATE PAIN LEVEL 4-6; Start 02/15/17 at 17:00 Morphine Sulfate (morphine) 2 mg Q4H PRN IV SEVERE PAIN LEVEL 7-10; Start 02/15 at 17:00 Docusate Sodium (Colace) 100 mg Q12H PRN PO CONSTIPATION; Start 02/15/17 at 17: 00 Enoxaparin Sodium (Lovenox) 30 mg DAILY SC Last administered on 02/17/17 10:52 ; Admin Dose 30 MG; Start 02/17/17 at 09:00 Haloperidol (Haldol) 2 mg Q8H PRN IM AGITATION Last administered on 02/16/17 18:58; Admin Dose 2 MG; Start 02/16/17 at 19:00 Allopurinol (Zyloprim) 100 mg BID PO ; Start 02/17/17 at 21:00 RENITA BURNS Feb 17, 2017 19:05
[2017-02-17] MEDS: HALOPERIDOL 5 MG INJ IM PRN (20:03)
[2017-02-17] MEDS ORDERED: LORAZEPAM 2 MG INJ IV ONE (20:30)
[2017-02-17] MEDS: ALLOPURINOL 100 MG TAB PO SCH (21:08)
[2017-02-17] MEDS: ATORVASTATIN 40 MG TAB PO SCH (21:08)
[2017-02-18 04:00] VITALS: BP 147/69; RESP 20
[2017-02-18] MEDS: FUROSEMIDE 20 MG INJ IV SCH (05:52)
--- NOTE | 2017-02-18 07:43 | CONS ---
Date/Time of Note Date/Time of Note DATE: 02/18/17 TIME: 07:41 Assessment/Plan Assessment/Plan Chief Complaint/Hosp Course 1. Troponin increase 2. s/p Torsades 3. HOCM with decompensation 4. Acute kidney injury 5. History of hypertension Problems: Additional Assessment/Plan 1) informed refusal of ICD ("are you kidding" patient tells me, oriented at the time) 2) continue current mds 3) beta zhou Consultation Date/Type/Reason Admit Date/Time Feb 15, 2017 at 11:51 Initial Consult Date 02/16/17 Type of Consultation: cv Referring Provider: RENITA BURNS 24 HR Interval Summary Free Text/Dictation no chest pain, no sob, no palpitations, no syncope, patient partially oriented with episodes of confusion Detailed Summary Respiratory: no complaints Cardiovascular: no complaints Gastrointestinal: no complaints Musculoskeletal: no complaints Neurologic: no complaints Exam/Review of Systems Vital Signs Vitals Vital Signs Date Time Temp Pulse Resp B/P Pulse Ox O2 Delivery O2 Flow Rate FiO2 02/18/17 04:00 97.7 83 20 147/69 93 02/17/17 04:55 Room Air 02/15/17 09:32 0 Intake and Output 02/17/17 02/17/17 02/18/17 15:00 23:00 07:00 Intake Total 340 ml Balance 340 ml Exam Constitutional: frail Head: normocephalic Eyes: nl conjunctiva Neck: supple Respiratory: clear to auscultation Cardiovascular: regular rate and rhythm Gastrointestinal: soft Musculoskeletal: nl extremities to inspection Results Result Diagram: 02/17/17 0657 02/17/17 0657 Results 24 hrs Laboratory Tests Test 02/17/17 11:15 Urine Eosinophils % 0.0 Urine Random Creatinine Urine Random Sodium 82 Urine Protein/Creatinine Ratio Urine Total Protein Medications Medications Current Medications Metoprolol Tartrate (Lopressor) 25 mg BID PO Last administered on 02/17/17 10: 51; Admin Dose 25 MG; Start 02/15/17 at 21:00 Aspirin (Aspirin) 81 mg DAILY PO Last administered on 02/17/17 10:50; Admin Dose 81 MG; Start 02/16/17 at 09:00 Atorvastatin Calcium (Lipitor) 40 mg HS PO Last administered on 02/17/17 21:08 ; Admin Dose 40 MG; Start 02/15/17 at 21:00 Clopidogrel Bisulfate (plaVIX) 75 mg DAILY PO Last administered on 02/17/17 10 :50; Admin Dose 75 MG; Start 02/16/17 at 09:00 Ondansetron HCl (Zofran Inj) 4 mg Q6H PRN IV NAUSEA AND/OR VOMITING; Start at 17:00 Acetaminophen (Tylenol Tab) 650 mg Q6H PRN PO PAIN LEVEL 1-3 OR FEVER; Start at 17:00 Acetaminophen/ Hydrocodone Bitart ([place] (5/325)) 1 tab Q6H PRN PO MODERATE PAIN LEVEL 4-6; Start 02/15/17 at 17:00 Morphine Sulfate (morphine) 2 mg Q4H PRN IV SEVERE PAIN LEVEL 7-10; Start 02/15 at 17:00 Docusate Sodium (Colace) 100 mg Q12H PRN PO CONSTIPATION; Start 02/15/17 at 17: 00 Enoxaparin Sodium (Lovenox) 30 mg DAILY SC Last administered on 02/17/17 10:52 ; Admin Dose 30 MG; Start 02/17/17 at 09:00 Haloperidol (Haldol) 2 mg Q8H PRN IM AGITATION Last administered on 02/17/17 20:03; Admin Dose 2 MG; Start 02/16/17 at 19:00 Allopurinol (Zyloprim) 100 mg BID PO Last administered on 02/17/17 21:08; Admin Dose 100 MG; Start 02/17/17 at 21:00 NELLIE GROSS MD Feb 18, 2017 07:43
[2017-02-18 08:00] VITALS: BP 128/61; PULSE 80; RESP 20; RESP 22
[2017-02-18 08:16] LABS: ABNORMAL IP MESSAGE 1; BASOPHILS % 0.4 % (0.0-2.0); EOSINOPHILS # 0.1 10^3/ul (0.0-0.5); EOSINOPHILS % 1.4 % (0.0-7.0); HEMATOCRIT 36.6 % (37.0-47.0); HEMOGLOBIN 12.3 g/dl (12.0-16.0); LYMPHOCYTES # 1.4 10^3/ul (0.8-2.9); LYMPHOCYTES % 14.8 % (15.0-51.0); MEAN CORPUSCULAR HEMOGLOBIN 31.7 pg (29.0-33.0); MEAN CORPUSCULAR HGB CONC 33.6 g/dl (32.0-37.0); MEAN CORPUSCULAR VOLUME 94.3 fl (82.0-101.0); MEAN PLATELET VOLUME 13.4 fl (7.4-10.4); MONOCYTE # 0.9 10^3/ul (0.3-0.9); MONOCYTES % 9.4 % (0.0-11.0); NEUTROPHILS % 73.5 % (39.0-77.0); PLATELET COUNT 171 10^3/UL (140-415); RED BLOOD COUNT 3.88 10^6/ul (4.20-5.40); RED CELL DISTRIBUTION WIDTH 14.8 % (11.5-14.5); WHITE BLOOD COUNT 9.6 10^3/ul (4.8-10.8)
[2017-02-18 08:21] VITALS: PULSE 75
[2017-02-18 08:26] LABS: CREATININE 1.17 mg/dl (0.44-1.00); POTASSIUM 3.8 mmol/L (3.5-5.1)
[2017-02-18 08:31] LABS: POSITIVE DIFF @See below
[2017-02-18] MEDS: CLOPIDOGREL 75 MG TAB PO SCH (10:09)
[2017-02-18] MEDS: METOPROLOL 25 MG TAB PO SCH (10:11)
[2017-02-18] MEDS: ASPIRIN 81 MG TAB PO SCH (10:11)
[2017-02-18] MEDS: ALLOPURINOL 100 MG TAB PO SCH (10:12)
[2017-02-18] MEDS: ENOXAPARIN 30 MG/0.3 ML SYG SC SCH (10:14)
[2017-02-18 12:21] VITALS: PULSE 65
[2017-02-18] MEDS ORDERED: METO-448 PO ×2 (15:09→15:13)
[2017-02-18] MEDS ORDERED: FURO20TA3 PO (15:13)
--- NOTE | 2017-02-18 15:16 | CONS ---
Date/Time of Note Date/Time of Note DATE: 02/18/17 TIME: 15:13 Assessment/Plan Assessment/Plan Chief Complaint/Hosp Course 89-year-old female with a history of hypertension and dyslipidemia as well as chronic lower extremity swelling for the past several months. Patient presents with complaint of worsening lower extremity edema and was found to have elevated troponins. Patient is poor historian and during my evaluation patient went into V. tach. Patient is being admitted for further cardiac workup, she has no other complaints except for lower extremity edema. pt is noted to have elevated Cr wtih V tach, renal has been consulted for it. Problems: Additional Assessment/Plan 1. Acute kidney injury due to hemodynamics from CHF and NSTEMI 2. NSTEMI 3. CHF 4. HTN 5. Rule out CKD Plan: stable Creatinine and Electrolytes today Cr imrpoving But BNP 32392 Renal US unremarkable, showed bilateral renal cysts, simple Cardiolgoy following will follow up Consultation Date/Type/Reason Admit Date/Time Feb 15, 2017 at 11:51 Initial Consult Date 02/16/17 Type of Consultation: NEPHROLOGY Referring Provider: RENITA BURNS Exam/Review of Systems Vital Signs Vitals Vital Signs Date Time Temp Pulse Resp B/P Pulse Ox O2 Delivery O2 Flow Rate FiO2 02/18/17 12:21 65 02/18/17 08:00 98.5 20 128/61 94 02/18/17 08:00 Room Air 02/15/17 09:32 0 Intake and Output 02/17/17 02/17/17 02/18/17 15:00 23:00 07:00 Intake Total 340 ml Balance 340 ml Exam Constitutional: alert Psych: confusion Head: normocephalic Respiratory: decreased BS at bases, bibasilar rales Cardiovascular: regular rate and rhythm Gastrointestinal: soft, No distended Musculoskeletal: No nl extremities to inspection Extremities: edema Results Result Diagram: 02/18/17 0720 02/18/17 0720 Results 24 hrs Laboratory Tests Test 02/18/17 07:20 White Blood Count 9.6 Red Blood Count 3.88 L Hemoglobin 12.3 Hematocrit 36.6 L Mean Corpuscular Volume 94.3 Mean Corpuscular Hemoglobin 31.7 Mean Corpuscular Hemoglobin Concent 33.6 Red Cell Distribution Width 14.8 H Platelet Count 171 Mean Platelet Volume 13.4 H Neutrophils % 73.5 Lymphocytes % 14.8 L Monocytes % 9.4 Eosinophils % 1.4 Basophils % 0.4 Nucleated Red Blood Cells % 0.0 Neutrophils # (Manual) 7 Lymphocytes # 1.4 Monocytes # 0.9 Eosinophils # 0.1 Basophils # 0.0 Nucleated Red Blood Cells # 0.0 Sodium Level 138 Potassium Level 3.8 Chloride Level 101 Carbon Dioxide Level 25 Anion Gap 16 Blood Urea Nitrogen 38 H Creatinine 1.17 H Glucose Level 111 Calcium Level 8.0 L Medications Medications Current Medications Metoprolol Tartrate (Lopressor) 25 mg BID PO Last administered on 02/18/17 10: 11; Admin Dose 25 MG; Start 02/15/17 at 21:00 Aspirin (Aspirin) 81 mg DAILY PO Last administered on 02/18/17 10:11; Admin Dose 81 MG; Start 02/16/17 at 09:00 Atorvastatin Calcium (Lipitor) 40 mg HS PO Last administered on 02/17/17 21:08 ; Admin Dose 40 MG; Start 02/15/17 at 21:00 Clopidogrel Bisulfate (plaVIX) 75 mg DAILY PO Last administered on 02/18/17 10 :09; Admin Dose 75 MG; Start 02/16/17 at 09:00 Ondansetron HCl (Zofran Inj) 4 mg Q6H PRN IV NAUSEA AND/OR VOMITING; Start at 17:00 Acetaminophen (Tylenol Tab) 650 mg Q6H PRN PO PAIN LEVEL 1-3 OR FEVER; Start at 17:00 Acetaminophen/ Hydrocodone Bitart ([place] (5/325)) 1 tab Q6H PRN PO MODERATE PAIN LEVEL 4-6; Start 02/15/17 at 17:00 Morphine Sulfate (morphine) 2 mg Q4H PRN IV SEVERE PAIN LEVEL 7-10; Start 02/15 at 17:00 Docusate Sodium (Colace) 100 mg Q12H PRN PO CONSTIPATION Last administered on 11:40; Admin Dose 100 MG; Start 02/15/17 at 17:00 Enoxaparin Sodium (Lovenox) 30 mg DAILY SC Last administered on 02/18/17 10:14 ; Admin Dose 30 MG; Start 02/17/17 at 09:00 Haloperidol (Haldol) 2 mg Q8H PRN IM AGITATION Last administered on 02/17/17 20:03; Admin Dose 2 MG; Start 02/16/17 at 19:00 Allopurinol (Zyloprim) 100 mg BID PO Last administered on 02/18/17 10:12; Admin Dose 100 MG; Start 02/17/17 at 21:00 TOMMY CAMACHO MD Feb 18, 2017 15:15
--- NOTE | 2017-02-18 15:23 | PDOCDIS ---
Discharge Instructions CONDITION Patient Condition: Good HOME CARE INSTRUCTIONS: Diet Instructions: Reduced Sodium ACTIVITY: Activity Restrictions: No Restrictions FOLLOW UP/APPOINTMENTS Follow-up Plan Follow up with your primary care provider for further care Return to the [facility] if you feel concerning symptoms LIBAN LEONE MD Feb 18, 2017 15:23
--- NOTE | 2017-02-18 15:27 | DS ---
Date/Time of Note Date/Time of Note DATE: 02/18/17 TIME: 15:25 Discharge Summary Admission/Discharge Info Admit Date/Time Feb 15, 2017 at 11:51 Discharge Date/Time Patient Condition: Stable Hx of Present Illness Patient is an 89-year-old female with a history of hypertension and dyslipidemia as well as chronic lower extremity swelling for the past several months. Patient presents with complaint of worsening lower extremity edema and was found to have elevated troponins. Patient is poor historian and during my evaluation patient went into V. tach. Patient is being admitted for further cardiac workup, she has no other complaints except for lower extremity edema. Hospital Course Patient was found to have HOCM and evidence of VT on telemetry ICD was recommendation to the patient. However, in discussion with Dr Meredith and the plastics fitter (see notes), it was decided that ICD implant was not in accordance with her goals of care She was thus discharged to home Home Meds Reported Medications Valsartan* (Diovan*) 320 Mg Tablet, 320 MG PO DAILY, TAB 01/10/15 Atorvastatin Calcium* (Atorvastatin Calcium*) 20 Mg Tablet, 20 MG PO HS, TAB 01/10/15 Clopidogrel Bisulfate* (Clopidogrel Bisulfate*) 75 Mg Tablet, 75 MG PO DAILY, TAB 01/10/15 Discontinued Scripts Metoprolol Tartrate* (Lopressor*) 25 Mg Tab, 25 MG PO BID for 30 Days, #60 TAB Prov:LIBAN LEONE MD 02/18/17 Cephalexin* (Keflex*) 500 Mg Capsule, 500 MG PO BID for 7 Days, CAP Prov:RIC CARL MD 01/10/15 Primary Care Provider Care Physician No Primary Time spent on discharge: > 30 minutes Pending Labs Laboratory Tests Test 02/18/17 07:20 White Blood Count 9.610^3/ul (4.8-10.8) Red Blood Count 3.8810^6/ul (4.20-5.40) Hemoglobin 12.3g/dl (12.0-16.0) Hematocrit 36.6% (37.0-47.0) Mean Corpuscular Volume 94.3fl (82.0-101.0) Mean Corpuscular Hemoglobin 31.7pg (29.0-33.0) Mean Corpuscular Hemoglobin Concent 33.6g/dl (32.0-37.0) Red Cell Distribution Width 14.8% (11.5-14.5) Platelet Count 92473^3/UL (140-415) Mean Platelet Volume 13.4fl (7.4-10.4) Neutrophils % 73.5% (39.0-77.0) Lymphocytes % 14.8% (15.0-51.0) Monocytes % 9.4% (0.0-11.0) Eosinophils % 1.4% (0.0-7.0) Basophils % 0.4% (0.0-2.0) Nucleated Red Blood Cells % 0.0/100WBC (0.0-0.0) Neutrophils # (Manual) 710^3/ul (1.7-7.5) Lymphocytes # 1.410^3/ul (0.8-2.9) Monocytes # 0.910^3/ul (0.3-0.9) Eosinophils # 0.110^3/ul (0.0-0.5) Basophils # 0.010^3/ul (0.0-0.1) Nucleated Red Blood Cells # 0.010^3/ul (0.0-0.0) Sodium Level 138mmol/L (135-144) Potassium Level 3.8mmol/L (3.5-5.1) Chloride Level 101mmol/L (97-110) Carbon Dioxide Level 25mmol/L (21-31) Anion Gap 16 (8-16) Blood Urea Nitrogen 38mg/dl (7-20) Creatinine 1.17mg/dl (0.44-1.00) Glucose Level 111mg/dl (70-220) Calcium Level 8.0mg/dl (8.4-10.2) LIBAN LEONE MD Feb 18, 2017 15:27
[2017-02-18 16:36] VITALS: PULSE 73
--- NOTE | 2017-02-18 20:06 | CONS ---
DATE OF ADMISSION: 02/15/2017 DATE OF CONSULTATION: 02/18/2017 REFERRING PHYSICIAN: Dr. Zhen Zaidi. REASON FOR CONSULTATION: Bilateral lower extremity chronic venous stasis changes and edema. HISTORY OF PRESENT ILLNESS: This is a very pleasant 89-year-old, nondiabetic, hypertensive woman who was admitted several days ago with mainly left leg edema and she was draining lymphatic fluid. That is really what brought her to the hospital was drainage of lymphatic fluid. She was found to be in CHF and she has been diuresed and now feels much better. The drainage has stopped. She also had some shortness of breath when she came in, which is resolved. She had an echo which shows an EF of 65 percent. She had an episode of torsades and had been recommended to have a defibrillator placed. She was scheduled for today but I think the patient has decided she did want to have it, so she has not had it placed. She also had a non-STEMI when she came in. PAST MEDICAL HISTORY: Her past medical history is significant for hypertension, congestive heart failure. She has coronary artery disease and has had an ND in the past. She has some chronic kidney disease. Creatinine is around 1.2. BNP was very high when she came in. So it is consistent with her CHF. she also had am ND with an elevated troponin when she came in. She has no history of diabetes. She has discoloration in both of her legs that has been present for several months. She has some mild dementia. Her significant other was with her today. He is very, very involved with her care and is a very good historian. MEDICATION: Her medications currently consist of: 1. Zyloprim. 2. Ativan. 3. Lovenox. 4. Haldol. 5. Aspirin. 6. Plavix. 7. Lopressor. 8. Lipitor. 9. Lasix. 10. Zofran. 11. Tylenol. 12. [place]. 13. Morphine. 14. Colace. 15. Nitroglycerin. ALLERGIES: SHE HAS NO KNOWN DRUG ALLERGIES. SOCIAL HISTORY: She is an ex-smoker. She stopped many years ago, more than 30 years ago. She does not drink or use any illicit drugs. FAMILY HISTORY: Noncontributory. She denies any medical problems that run in the family. REVIEW OF SYSTEMS: She currently denies any chest pain, shortness of breath, nausea, vomiting or diarrhea. No fever, no chills. No recent weight gain or weight loss. She and her significant other both say when she came in she was having shortness of breath and leg edema as well as the lymphatic drainage from the left leg. This is all resolved now. PHYSICAL EXAMINATION: GENERAL APPEARANCE: She is an elderly woman. She is in no distress. VITAL SIGNS: She has been afebrile. Blood pressure is 128/61, heart rate is 80, respiratory rate is 20. She is 94 percent sat on room air. She has 2+ carotid pulses bilaterally. 2+ radial and brachial pulses bilaterally. No arm edema. LUNGS: Clear. HEART: Regular rate and rhythm. ABDOMEN: Soft, nontender, nondistended. EXTREMITIES: She has 2+ femoral, popliteal and 1+ DP pulses bilaterally. DP pulses difficult to feel. Her skin in the calves is crinkly wrinkled consistent with her recent diuresis. There are no ulcers. There's no drainage of any liquid. There is chronic venous stasis changes with hyperpigmentation in the calves bilaterally. There is no edema in her feet. No wounds on the feet and the toes are all warm, pink and well perfused. LABORATORY AND DIAGNOSTIC DATA: She has had a venous scan, which shows no DVT bilaterally. 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 Reflux was not really evaluated. Renal ultrasound showed some renal cysts. No other significant findings. Her creatinine is essentially normal. The rest of the lab values now are essentially normalized. she did have a very elevated BNP at 20,000 yesterday. Her troponins were more elevated when she came in as well. IMPRESSION: Bilateral lower extremity chronic venous stasis changes likely due to combination of congestive heart failure and chronic venous insufficiency. I had a long talk with her and her significant other about treatment options. I think she would likely benefit from some compression stockings. She might benefit from venous ablation, depending on what the findings of venous ultrasound, which I would do in my office and then evaluate for reflux there. So I gave her my card and asked them to make an appointment to see me in a week after she is discharged and she seems to be much better from a cardiac standpoint and her edema and drainage has resolved. Dictated By: Manas Padilla MD /[email or web address]/[email or web address] /Document#: [id number] CC: Zhen Zaidi MD; Steve Flores MD; Abdoulaye Rosenthal MD; Robert Wright MD;*EndCC*
== END 2017-02-18 16:50 | disposition home or self-care (01) | DRG 280 ==
LOC: E/R 09:11 → MS4 11:51
PROVIDERS: ADMIT Hospitalist; ATTEND Hospitalist
DX: I21.4 Non-ST elevation (NSTEMI) myocardial infarction (principal); I50.33 Acute on chronic diastolic (congestive) heart failure; I47.2 Ventricular tachycardia; I42.1 Obstructive hypertrophic cardiomyopathy; N17.9 Acute kidney failure, unspecified; I11.0 Hypertensive heart disease with heart failure; J43.9 Emphysema, unspecified; E78.5 Hyperlipidemia, unspecified; Z87.891 Personal history of nicotine dependence; I34.0 Nonrheumatic mitral (valve) insufficiency; Z66 Do not resuscitate; I87.8 Other specified disorders of veins
CPT/HCPCS: 36415; 71010; 76775; 80048; 80061; 81003; 82550; 82553; 82570; 83036; 83735; 83880; 84100; 84300; 84484; 84560; 85025; 85610; 85730; 87070; 89190; 93005; 93306; 93970; 96374; J1940; J1630; J1650; J2060; J3475